=== PATIENT | male | born 1960 | race Caucasian/White ===

== ENCOUNTER 2017-03-11 20:37 | Emergency (ER) | payer OTHER ==
[2017-03-11] MEDS ORDERED: Adacel (T-DAP) 0.5 ML VIAL ONE (20:52)
[2017-03-11] MEDS ORDERED: Lidocaine 1% 20 ML MDV ONE (21:02)
[2017-03-11] MEDS ORDERED: Sodium Bicarbonate 2.4 MEQ/5 ML ONE (21:03)
[2017-03-11] MEDS ORDERED: HYDROcodone/Acetaminophen 5/325 mg Tablet ONE (21:21)
[2017-03-11] MEDS ORDERED: Cephalexin 250 MG CAP ONE (22:37)
--- NOTE | 2017-03-12 07:38 | RAD ---
RIGHT GREAT TOE THREE VIEWS: Date: 03-11-17 FINDINGS: Transverse fracture is seen through the distal phalanx of the great toe. There is also a fracture of the terminal tuft separately. The joints do not seem to be involved. IMPRESSION: Fracture of the distal phalanx of the great toe. POS: HOME
== END 2017-03-11 23:05 | disposition home or self-care (01) ==
LOC: BURERS 20:37
DX: S92.421A Displaced fracture of distal phalanx of right great toe, initial encounter for closed fracture (principal); S91.211A Laceration without foreign body of right great toe with damage to nail, initial encounter; J44.9 Chronic obstructive pulmonary disease, unspecified; W23.0XXA Caught, crushed, jammed, or pinched between moving objects, initial encounter
CPT/HCPCS: 12001; 90471; 90715; J2001